=== PATIENT | male | born 1980 | race Caucasian/White ===

== ENCOUNTER 2017-05-07 23:25 | Emergency (ER) | payer OTHER ==
[~2017-05-07 23:25] MED LIST: NOR10 PO
== END 2017-05-08 00:09 | disposition left against medical advice (07) ==
LOC: ED 23:25
DX: Z53.21 Procedure and treatment not carried out due to patient leaving prior to being seen by health care provider (principal)

== ENCOUNTER 2017-06-04 02:57 | Emergency (ER) | payer OTHER ==
[~2017-06-04] VITALS: Ht 162.6 cm; Wt 74.4 kg
[2017-06-04 03:05] VITALS: Ht 162.6 cm; Wt 74.4 kg
[2017-06-04 04:32] VITALS: BP 187/110
== END 2017-06-04 04:32 | disposition home or self-care (01) ==
LOC: ED 02:57
DX: H66.91 Otitis media, unspecified, right ear (principal); I10 Essential (primary) hypertension; J45.909 Unspecified asthma, uncomplicated

== ENCOUNTER 2017-08-12 16:43 | Emergency (ER) | payer OTHER ==
[~2017-08-12] VITALS: Ht 162.6 cm; Wt 74.4 kg
[2017-08-12 16:46] VITALS: Ht 162.6 cm; Wt 74.4 kg
[2017-08-12 17:46] LABS: BASOPHIL % 0.5 % (0-2); PLATELET COUNT 319 x10^3mcL (130-400); RED CELL DISTRIBUTION WIDTH 13.9 % (11.5-14.5)
[2017-08-12 18:49] VITALS: BP 147/118
== END 2017-08-12 18:49 | disposition home or self-care (01) ==
LOC: ED 16:43
PROVIDERS: Emergency Medicine
DX: S86.812A Strain of other muscle(s) and tendon(s) at lower leg level, left leg, initial encounter (principal); J45.901 Unspecified asthma with (acute) exacerbation; I10 Essential (primary) hypertension; X58.XXXA Exposure to other specified factors, initial encounter; Y93.89 Activity, other specified; Y92.89 Other specified places as the place of occurrence of the external cause; Y99.8 Other external cause status
CPT/HCPCS: 83880; J2060; J2930; J3475; J7030; J7613; J7644

== ENCOUNTER 2017-08-17 10:29 | Emergency (ER) | payer OTHER ==
[~2017-08-17] VITALS: Ht 162.6 cm; Wt 74.8 kg
[2017-08-17 10:48] VITALS: BP 179/116; Ht 162.6 cm; Wt 74.8 kg
== END 2017-08-17 11:49 | disposition left against medical advice (07) ==
LOC: ED 10:29
DX: Z53.21 Procedure and treatment not carried out due to patient leaving prior to being seen by health care provider (principal)

== ENCOUNTER 2017-08-19 15:29 | Emergency (ER) | payer OTHER ==
[~2017-08-19] VITALS: Ht 162.6 cm; Wt 74.8 kg
[2017-08-19 16:01] VITALS: BP 190/130; Ht 162.6 cm; Wt 74.8 kg
== END 2017-08-19 17:56 | disposition left against medical advice (07) ==
LOC: ED 15:29
DX: Z53.21 Procedure and treatment not carried out due to patient leaving prior to being seen by health care provider (principal)

== ENCOUNTER 2018-05-07 01:21 | Emergency (ER) | payer OTHER ==
[~2018-05-07] VITALS: Ht 162.6 cm; Wt 73.0 kg
[2018-05-07 01:34] VITALS: Ht 162.6 cm; Wt 73.0 kg
[2018-05-07 02:49] VITALS: BP 140/108
== END 2018-05-07 02:49 | disposition home or self-care (01) ==
LOC: ED 01:21
DX: R05 Cough (principal); I10 Essential (primary) hypertension; J45.909 Unspecified asthma, uncomplicated; Z76.0 Encounter for issue of repeat prescription

== ENCOUNTER 2018-06-06 14:33 | Emergency (ER) | payer OTHER ==
[~2018-06-06] VITALS: Ht 162.6 cm; Wt 70.3 kg
[2018-06-06 14:44] VITALS: Ht 162.6 cm; Wt 70.3 kg
[2018-06-06 17:18] VITALS: BP 115/71
== END 2018-06-06 17:18 | disposition home or self-care (01) ==
LOC: ED 14:33
DX: S86.811A Strain of other muscle(s) and tendon(s) at lower leg level, right leg, initial encounter (principal); H66.91 Otitis media, unspecified, right ear; J11.1 Influenza due to unidentified influenza virus with other respiratory manifestations; J45.909 Unspecified asthma, uncomplicated; I10 Essential (primary) hypertension; W18.49XA Other slipping, tripping and stumbling without falling, initial encounter; Y93.89 Activity, other specified; Y92.89 Other specified places as the place of occurrence of the external cause; Y99.8 Other external cause status